=== PATIENT | male | born 1960 | race Caucasian/White ===

== ENCOUNTER → 2021-07-31 | Outpatient (CLI) | payer OTHER | LOC: WOUNDCARE 13:09 | PROVIDERS: ATTEND Surgery | DX: E11.622 Type 2 diabetes mellitus with other skin ulcer (principal); L89.893 Pressure ulcer of other site, stage 3; L98.492 Non-pressure chronic ulcer of skin of other sites with fat layer exposed; S21.90XA Unspecified open wound of unspecified part of thorax, initial encounter; I10 Essential (primary) hypertension; E78.5 Hyperlipidemia, unspecified; I48.91 Unspecified atrial fibrillation; E11.40 Type 2 diabetes mellitus with diabetic neuropathy, unspecified; Z79.899 Other long term (current) drug therapy; Z79.82 Long term (current) use of aspirin; Z79.01 Long term (current) use of anticoagulants; Z86.73 Personal history of transient ischemic attack (TIA), and cerebral infarction without residual deficits; Z87.891 Personal history of nicotine dependence; Z95.818 Presence of other cardiac implants and grafts; Z98.890 Other specified postprocedural states; Z72.89 Other problems related to lifestyle; X58.XXXA Exposure to other specified factors, initial encounter; Y93.89 Activity, other specified; Y92.89 Other specified places as the place of occurrence of the external cause; Y99.8 Other external cause status ==

== ENCOUNTER → 2021-08-21 | Outpatient (CLI) | payer OTHER | LOC: WOUNDCARE 01:10 | PROVIDERS: ATTEND Surgery | DX: E11.622 Type 2 diabetes mellitus with other skin ulcer (principal); L89.893 Pressure ulcer of other site, stage 3; L98.492 Non-pressure chronic ulcer of skin of other sites with fat layer exposed; S21.90XD Unspecified open wound of unspecified part of thorax, subsequent encounter; I10 Essential (primary) hypertension; E78.5 Hyperlipidemia, unspecified; I48.91 Unspecified atrial fibrillation; E11.40 Type 2 diabetes mellitus with diabetic neuropathy, unspecified; Z79.899 Other long term (current) drug therapy; Z79.82 Long term (current) use of aspirin; Z79.01 Long term (current) use of anticoagulants; Z86.73 Personal history of transient ischemic attack (TIA), and cerebral infarction without residual deficits; X58.XXXD Exposure to other specified factors, subsequent encounter ==

== ENCOUNTER → 2021-09-18 | Outpatient (CLI) | payer OTHER | LOC: ORTHO 00:38 → WOUNDCARE 00:38 → ORTHO 19:19 | PROVIDERS: ATTEND Surgery | DX: E11.622 Type 2 diabetes mellitus with other skin ulcer (principal); L89.893 Pressure ulcer of other site, stage 3; L98.491 Non-pressure chronic ulcer of skin of other sites limited to breakdown of skin; R21 Rash and other nonspecific skin eruption; I10 Essential (primary) hypertension; E78.5 Hyperlipidemia, unspecified; S21.90XD Unspecified open wound of unspecified part of thorax, subsequent encounter; X58.XXXD Exposure to other specified factors, subsequent encounter ==